=== PATIENT | female | born 1975 | race Caucasian/White ===

== ENCOUNTER 2017-05-26 00:36 | Emergency (ER) | payer OTHER ==
[2017-05-26] MEDS ORDERED: NS 1,000 ML IV ONE (00:46)
--- NOTE | 2017-05-26 01:03 | CPEKG ---
Heart Rate: 69 RR Interval: 870 P-R Interval: 136 QRSD Interval: 76 QT Interval: 396 QTC Interval: 425 P Brohman: 66 QRS Brohman: 76 T Wave Brohman: 36 EKG Severity - BORDERLINE ECG - EKG Impression: SINUS RHYTHM EKG Impression: PROBABLE LEFT ATRIAL ABNORMALITY Electronically Signed By: Alicia Wallace 27-May-2017 16:58:24
[2017-05-26 01:10] LABS: PLATELET COUNT 222 10^3/uL (150-400)
[2017-05-26 01:19] LABS: INR 0.99 (0.83-1.16); PROTIME(PATIENT) 13.3 SEC (12.0-15.0)
--- NOTE | 2017-05-26 01:37 | EDPHY ---
H & P Stated Complaint: Worsening palpitations over the past week, especially bad tonight. Time Seen by Provider: 05/26/17 00:45 HPI/ROS: HPI CHIEF COMPLAINT: Palpitations HISTORY OF PRESENT ILLNESS: Patient 42-year-old female she is otherwise healthy no significant medical history however 5 years ago she developed palpitations and had a workup for this. She states she had an echocardiogram, EKG was till the palpitations are due to stress. However she does state that she had an echocardiogram that showed a thickened heart. She is an avid runner and runs 100 mi races. Does not get any chest pain or shortness of breath when she runs. She presents emergency room as she states over the past week she has had intermittent and worsening palpitations. She denies any chest pain or shortness of breath. Denies fever. Denies pleuritic pain. Denies recent illness. Decided come the emergency room tonight as she had a worsening palpitations. No chest pain or shortness of breath no nausea no numbness or tingling. Past Medical History: Denies significant medical history Past Surgical History: Denies significant surgical history Social History: Lives locally in [place]. Avid runner. Denies drugs alcohol tobacco. Family History: Noncontributory ROS REVIEW OF SYSTEMS: A comprehensive 10 point review of systems is otherwise negative aside from elements mentioned in the history of present illness. Exam Constitutional appears well nontoxic, triage nursing summary reviewed, vital signs reviewed, awake/alert. Eyes normal conjunctivae and sclera, EOMI, PERRLA. HENT normal inspection, atraumatic, moist mucus membranes, no epistaxis, neck supple/ no meningismus, no raccoon eyes. Respiratory clear to auscultation bilaterally, normal breath sounds, no respiratory distress, no wheezing. Cardiovascular rate normal, regular rhythm, no murmur, no edema, distal pulses normal. Gastrointestinal soft, non-tender, no rebound, no guarding, normal bowel sounds, no distension, no pulsatile mass. Genitourinary no CVA tenderness. Musculoskeletal no midline vertebral tenderness, full range of motion, no calf swelling, no tenderness of extremities, no meningismus, good pulses, neurovascularly intact. Skin pink, warm, & dry, no rash, skin atraumatic. Neurologic awake, alert and oriented x 3, AAOx3, moves all 4 extremities equally, motor intact, sensory intact, CN II-XII intact, normal cerebellar, normal vision, normal speech. Psychiatric normal mood/affect. Heme/Lymph/Immune no lymphadenopathy. Differential diagnosis includes but is not limited to: ACS, atypical chest pain , pneumothorax, pneumonia, pulmonary embolism, aortic dissection, congestive heart failure, tumor, musculoskeletal pain, esophageal pain, GERD, peptic ulcer disease, pancreatitis Medical Decision Making: Plan for this patient IV establishment with blood draw , check basic electrolytes, TSH, magnesium, EKG, chest x-ray and re-evaluate. Re-evaluation: EKG interpretation by me on record in [employer] system. Impression time of EKG 1:00 a.m., sinus rhythm rate of 69 no signs of cardiac arrhythmia no signs of ST elevation or ST depression no significant T-wave abnormalities. Unremarkable nonischemic EKG. No signs of Brugada or WPW 0232: Patient resting comfortably in no acute distress she has been on the patient monitor throughout her ER visit. Heart rate is 62 and regular. There has been no signs of cardiac arrhythmia. Blood pressure stable. Patient's EKG is nonischemic and shows no signs of cardiac arrhythmia. Blood work is reviewed and reassuring negative troponin. Normal electrolytes. TSH still pending. She has not had any chest pain shortness of breath she arrived for palpitations which we did not capture here in the emergency room. I do recommend she has close follow up with Cardiology on outpatient basis. For Holter monitor and echo. Additionally return precautions discussed with her she understands return if she develops chest pain shortness of breath worsening symptoms. EKG interpretation by me on record in [employer] system. Impression time of EKG 2:36 a.m., sinus rhythm rate of 61 no signs of cardiac arrhythmia. No signs of WPW or Brugada. No signs of ischemia. Unremarkable EKG. 0341: 2nd troponin is negative. She has been resting comfortably no signs of cardiac arrhythmia. I went over TSH with her. She understands follow-up with primary care doctor better thyroid. Additionally she understands return emergency room if develops any chest pain shortness of breath syncope or palpitations. Additionally follow up with Cardiology on outpatient basis for Holter monitor and echo. Return if worse. Source: Patient - Personal History LMP (Females 10-55): 8-14 Days Ago Current Tetanus/Diphtheria Vaccine: Unsure Current Tetanus Diphtheria and Acellular Pertussis (TDAP): Unsure - Medical/Surgical History Hx Asthma: No Hx Chronic Respiratory Disease: No Hx Diabetes: No Hx Cardiac Disease: No Hx Renal Disease: No Hx Cirrhosis: No Hx Alcoholism: No Hx HIV/AIDS: No Hx Splenectomy or Spleen Trauma: No Other PMH: Denies - Social History Smoking Status: Never smoked Constitutional: Initial Vital Signs Temperature (C) 36.6 C 05/26/17 00:39 Heart Rate 82 05/26/17 00:39 Respiratory Rate 15 05/26/17 00:39 Blood Pressure 151/79 H 05/26/17 00:39 O2 Sat (%) 100 05/26/17 00:39 O2 Delivery Mode Room Air Allergies/Adverse Reactions: cephalexin [Cephalexin] Allergy (Intermediate, Verified 08/21/12 16:55) Rash Home Medications: Medication Instructions Recorded No Medications [No Meds] [facility]12 Medical Decision Making - Data Points Laboratory Results: Laboratory Results 05/26/17 01:00 05/26/17 01:00 05/26/17 05/26/17 05/26/17 02:42 01:00 01:00 WBC RBC Hgb Hct MCV MCH MCHC RDW Plt Count MPV Neut % (Auto) Lymph % (Auto) Drew % (Auto) Eos % (Auto) Baso % (Auto) Nucleat RBC Rel Count Absolute Neuts (auto) Absolute Lymphs (auto) Absolute Monos (auto) Absolute Eos (auto) Absolute Basos (auto) Absolute Nucleated RBC Immature Gran % Immature Gran # PT INR APTT D-Dimer Sodium 141 mEq/L mEq/L (135-145) Potassium 3.8 mEq/L mEq/L (3.5-5.2) Chloride 108 mEq/L mEq/L (97-110) Carbon Dioxide 25 mEq/l mEq/l (22-31) Anion Gap 8 mEq/L mEq/L (8-16) BUN 11 mg/dL mg/dL (7-23) Creatinine 0.6 mg/dL mg/dL (0.6-1.0) Estimated GFR > 60 Glucose 115 mg/dL H mg/dL (70-100) Calcium 9.5 mg/dL mg/dL (8.5-10.4) Magnesium 2.1 mg/dL mg/dL (1.6-2.3) Total Bilirubin 0.5 mg/dL mg/dL (0.1-1.4) Conjugated Bilirubin 0.2 mg/dL mg/dL (0.0-0.5) Unconjugated Bilirubin 0.3 mg/dL mg/dL (0.0-1.1) AST 21 IU/L IU/L (14-46) ALT 24 IU/L IU/L (9-52) Alkaline Phosphatase 38 IU/L IU/L (38-126) Creatine Kinase 124 IU/L IU/L (0-156) CK-MB (CK-2) Fraction 1.64 ng/mL ng/mL (0.00-4.55) Troponin I < 0.012 ng/mL ng/mL < 0.012 ng/mL ng/mL (0.000-0.034) (0.000-0.034) NT-Pro-B Natriuret Pep 50 pg/mL pg/mL (0-125) Total Protein 6.7 g/dL g/dL (6.3-8.2) Albumin 4.0 g/dL g/dL (3.5-5.0) TSH 5.040 uIU/mL H uIU/mL (0.465-4.680) Beta HCG, Qual NEGATIVE 05/26/17 05/26/17 01:00 01:00 WBC 5.47 10^3/uL 10^3/uL (3.80-9.50) RBC 4.29 10^6/uL 10^6/uL (4.18-5.33) Hgb 13.8 g/dL g/dL (12.6-16.3) Hct 39.4 % % (38.0-47.0) MCV 91.8 fL fL (81.5-99.8) MCH 32.2 pg pg (27.9-34.1) MCHC 35.0 g/dL g/dL (32.4-36.7) RDW 12.3 % % (11.5-15.2) Plt Count 222 10^3/uL 10^3/uL (150-400) MPV 10.1 fL fL (8.7-11.7) Neut % (Auto) 47.2 % % (39.3-74.2) Lymph % (Auto) 41.3 % % (15.0-45.0) Drew % (Auto) 9.9 % % (4.5-13.0) Eos % (Auto) 0.9 % % (0.6-7.6) Baso % (Auto) 0.5 % % (0.3-1.7) Nucleat RBC Rel Count 0.0 % % (0.0-0.2) Absolute Neuts (auto) 2.58 10^3/uL 10^3/uL (1.70-6.50) Absolute Lymphs (auto) 2.26 10^3/uL 10^3/uL (1.00-3.00) Absolute Monos (auto) 0.54 10^3/uL 10^3/uL (0.30-0.80) Absolute Eos (auto) 0.05 10^3/uL 10^3/uL (0.03-0.40) Absolute Basos (auto) 0.03 10^3/uL 10^3/uL (0.02-0.10) Absolute Nucleated RBC 0.00 10^3/uL 10^3/uL (0-0.01) Immature Gran % 0.2 % % (0.0-1.1) Immature Gran # 0.01 10^3/uL 10^3/uL (0.00-0.10) PT 13.3 SEC SEC (12.0-15.0) INR 0.99 (0.83-1.16) APTT 26.4 SEC SEC (23.0-38.0) D-Dimer < 0.27 ug/mLFEU ug/mLFEU (0.00-0.50) Sodium Potassium Chloride Carbon Dioxide Anion Gap BUN Creatinine Estimated GFR Glucose Calcium Magnesium Total Bilirubin Conjugated Bilirubin Unconjugated Bilirubin AST ALT Alkaline Phosphatase Creatine Kinase CK-MB (CK-2) Fraction Troponin I NT-Pro-B Natriuret Pep Total Protein Albumin TSH Beta HCG, Qual Medications Given: Discontinued Medications Sodium Chloride (Ns) 1,000 mls @ 0 mls/hr IV EDNOW ONE; Wide Open PRN Reason: Protocol Stop: 05/26/17 00:47 Last Admin: 05/26/17 01:15 Dose: 1,000 mls Departure - Departure Disposition: Home, Routine, Self-Care Clinical Impression: Palpitations Condition: Good Instructions: Heart Palpitations (ED) Additional Instructions: 1. Return emergency room if you have a syncopal episode or pass out or you develops severe chest pain or shortness of breath. 2. Follow up with Cardiology. 3. Additionally please have her thyroid followed up with her primary care doctor. Referrals: Reena Marshall MD [Primary Care Provider] - As per Instructions Tyesha Qiu MD [Medical Doctor] - As per Instructions
[2017-05-26 01:46] VITALS: BP 137/93
[2017-05-26 01:54] LABS: CREATINE KINASE 124 IU/L (0-156)
--- NOTE | 2017-05-26 02:39 | CPEKG ---
Heart Rate: 61 RR Interval: 984 P-R Interval: 132 QRSD Interval: 74 QT Interval: 424 QTC Interval: 427 P Chualar: 58 QRS Chualar: 71 T Wave Chualar: 43 EKG Severity - NORMAL ECG - EKG Impression: SINUS RHYTHM Electronically Signed By: Alicia Wallace 27-May-2017 16:58:16
== END 2017-05-26 03:50 | disposition home or self-care (01) ==
DX: R00.2 Palpitations (principal); E86.9 Volume depletion, unspecified